=== PATIENT | female | born 1990 | race Caucasian/White ===

== ENCOUNTER 2020-06-17 00:24 | Inpatient (IN) ==
[2020-06-17] MEDS ORDERED: ONDANSETRON 4 MG/2 ML VIAL IV PRN (01:05)
[2020-06-17] MEDS ORDERED: AMPICILLIN INJ 2,000 MG in SODIUM CHLORIDE 0.9% 100 ML IV ONE (01:40)
[2020-06-17 01:45] LABS: Basophils % 0.2 % (0.0-0.8); Eosinophils # 0.1 10*3/uL (0.0-0.87); Eosinophils % 0.4 % (0.00-10.9); Hematocrit 32.3 VOL% (35.7-47.0); Hemoglobin 10.7 GM/DL (12.0-16.0); Immature Granulocytes % 0.4 %; Immature Granulocytes Absolute 0.05 #; Lymphocytes # 2.9 10*3/uL (1.4-4.0); Lymphocytes % 24.3 % (21.3-54.2); Mean Corpuscular HGB Conc 33.1 GM/DL (32-36); Mean Corpuscular Volume 89.5 FL (87-102); Mean Platelet Volume 13.6 FL (9.6-12.0); Monocytes % 6.2 % (1.7-12.7); Neutrophils % 68.5 % (38.7-73.9); Platelet Count 125 T/CUMM (130-400); Red Blood Count 3.61 MC/CUMM (3.8-5.5); Red Cell Distribution Width 12.9 % (9.3-17.3)
[2020-06-17] MEDS: LACTATED RINGERS 1,000 ML IV SCH ×2 (02:30→20:46)
[2020-06-17] MEDS: AMPICILLIN INJ 1,000 MG in SODIUM CHLORIDE 0.9% 100 ML IV SCH ×5 (06:53→22:34)
[2020-06-17] MEDS ORDERED: BETAMETH SODIUM PHOS/ACETATE 30 MG/5 ML VIAL IM SCH ×2 (07:30→19:30)
[2020-06-18] MEDS: AMPICILLIN INJ 1,000 MG in SODIUM CHLORIDE 0.9% 100 ML IV SCH ×5 (02:29→18:52)
[2020-06-18] MEDS ORDERED: OXYTOCIN/LR 20 UNIT/1,000 ML BAG IV SCH (08:48)
[2020-06-18] MEDS ORDERED: OXYTOCIN/LR 20 UNIT/1,000 ML BAG IV ONE ×2 (08:55→19:51)
[2020-06-18] MEDS ORDERED: ONDANSETRON 4 MG/2 ML VIAL IV ONE (11:35)
[2020-06-18] MEDS ORDERED: CITRIC ACID/SODIUM CITRATE 30 ML UDCUP PO ONE (11:35)
[2020-06-18] MEDS ORDERED: hydrOXYzine HCL 25 MG/1 ML VIAL IM PRN (11:35)
[2020-06-18] MEDS ORDERED: NALOXONE 0.4 MG/ML VIAL IV PRN (11:35)
[2020-06-18] MEDS ORDERED: ePHEDrine 50 MG/ML VIAL IV PRN (11:35)
[2020-06-18] MEDS ORDERED: FAMOTIDINE 20 MG/2 ML VIAL IV ONE (11:35)
[2020-06-18] MEDS ORDERED: diphenhydrAMINE 50 MG/1 ML VIAL IV PRN ×2 (11:35)
[2020-06-18] MEDS ORDERED: PROMETHAZINE 25 MG/1 ML VIAL IM ONE (11:35)
[2020-06-18] MEDS ORDERED: CITRIC ACID/SODIUM CITRATE 30 ML UDCUP ONE (11:39)
[2020-06-18] MEDS ORDERED: fentaNYL 2 MCG/ROPIV 0.2% EPID 100 ML EPIDURAL SCH (12:00)
[2020-06-18 14:29] LABS: Apearance,Urine CLEAR (Clear); Bacteria,Urine Occasional /HPF (Few); Bilirubin,Urine Negative (Negative); Blood, Urine Negative (Negative); Glucose,Urine (UA) Negative (Negative); Ketones,Urine 80 mg/dL (Negative); Mucus,Urine Occasional /LPF (Occasional); Nitrite,Urine Negative (Negative); Protein,Urine Negative; RBC,Urine <1 /HPF (0-4); Urine Color Yellow (Yellow); Urine Specific Gravity 1.011 (1.001-1.035); Urine Urobilinogen < 2.0 EU/DL (0.2-1.0); WBC,Urine 1 /HPF (0-6)
[2020-06-18] MEDS ORDERED: LIDOCAINE 1% 50 ML VIAL ONE (18:26)
[2020-06-18] MEDS ORDERED: METHYLERGONOVINE 0.2 MG/1 ML AMP ONE (18:27)
[2020-06-18] MEDS ORDERED: CARBOPROST TROMETHAMINE 250 MCG/ML AMP IM ONE (18:27)
[2020-06-18] MEDS ORDERED: SODIUM CHLORIDE 0.9% 0 ML IV ONE (18:27)
[2020-06-18] MEDS ORDERED: miSOPROStoL 200 MCG TABLET ONE (18:27)
[2020-06-18] MEDS ORDERED: TRANEXAMIC ACID 1,000 MG/10 ML VIAL ONE (18:27)
[2020-06-18 19:33] LABS: Cord Arterial Blood HCO3 23.6 MMOL/L
[2020-06-18 19:35] LABS: Cord Venous Blood HCO3 20.7 MMOL/L; Cord Venous Blood PCO2 35.2 MMHG
[2020-06-18] MEDS ORDERED: ACETAMINOPHEN 325 MG TABLET PO PRN (19:51)
[2020-06-18] MEDS ORDERED: RHO(D) IMMUNE GLOBULIN 300 MCG SYRINGE IM ONE (19:51)
[2020-06-18] MEDS ORDERED: WITCH HAZEL PADS 100/JAR TOP PRN (19:51)
[2020-06-18] MEDS ORDERED: BISACODYL 10 MG SUPP RECTAL PRN (19:51)
[2020-06-18] MEDS ORDERED: oxyCODONE/ACETAMINOPHEN 5-325 MG TABLET PO PRN ×2 (19:51)
[2020-06-18] MEDS ORDERED: MEASLES/MUMPS/RUBELLA VACCINE 0.5 ML VIAL SUBCUT ONE (19:51)
[2020-06-18] MEDS ORDERED: ONDANSETRON 4 MG/2 ML VIAL IV PRN (19:51)
[2020-06-18] MEDS ORDERED: LANOLIN 50% CREAM 0.3 OZ TUBE TOP PRN (19:51)
[2020-06-18] MEDS ORDERED: HYDROCORTISONE 2.5% RECTAL CREAM 30 GM TUBE TOP PRN (19:51)
[2020-06-18] MEDS ORDERED: BENZOCAINE 20%/MENTHOL 0.5% SPRAY 56 GM CAN TOP PRN (19:51)
[2020-06-18] MEDS ORDERED: DIPH/TET/ACEL PERT BOOSTER VACCINE 0.5 ML VIAL IM ONE (19:51)
[2020-06-18] MEDS: IBUPROFEN 800 MG TABLET PO PRN (23:18)
[2020-06-19 04:33] LABS: Basophils % 0.1 % (0.0-0.8); Eosinophils % 0.2 % (0.00-10.9); Hemoglobin 9.5 GM/DL (12.0-16.0); Immature Granulocytes % 0.6 %; Immature Granulocytes Absolute 0.12 #; Lymphocytes # 2.5 10*3/uL (1.4-4.0); Lymphocytes % 13.2 % (21.3-54.2); Mean Corpuscular HGB Conc 32.8 GM/DL (32-36); Mean Corpuscular Volume 89.8 FL (87-102); Mean Platelet Volume 13.5 FL (9.6-12.0); Monocytes % 7.2 % (1.7-12.7); Neutrophils % 78.7 % (38.7-73.9); Platelet Count 125 T/CUMM (130-400); Red Blood Count 3.23 MC/CUMM (3.8-5.5); White Blood Count 18.8 T/CUMM (4-12)
[2020-06-19] MEDS: DOCUSATE SODIUM 100 MG CAPSULE PO SCH ×3 (08:28→21:24)
[2020-06-19] MEDS: IBUPROFEN 800 MG TABLET PO PRN (19:54)
[2020-06-20] MEDS: IBUPROFEN 800 MG TABLET PO PRN (03:42)
[2020-06-20 08:21] VITALS: BP 131/71
[2020-06-20] MEDS: DOCUSATE SODIUM 100 MG CAPSULE PO SCH (08:32)
== END 2020-06-20 10:50 | disposition home or self-care (01) | DRG 807 ==
LOC: N.LDOUT 00:24 → N.LD 00:24 → N.OB 06-18 23:11
PROVIDERS: ADMIT Specialist; ATTEND Obstetrics & Gynecology